=== PATIENT | female | born 1980 | race Caucasian/White ===

== ENCOUNTER → 2019-05-17 | Outpatient (CLI) | payer BC | LOC: SJCVCIMAG 13:36 | DX: I10 Essential (primary) hypertension (principal) ==

== ENCOUNTER → 2019-05-18 | Outpatient (CLI) | payer BC | LOC: SJCVCIMAG 09:28 | DX: I10 Essential (primary) hypertension (principal); E78.5 Hyperlipidemia, unspecified ==

== ENCOUNTER → 2019-11-09 | Outpatient (CLI) | payer OTHER | LOC: CAT 08:10 | PROVIDERS: ATTEND Internal Medicine Cardiovascular Disease | DX: Z13.6 Encounter for screening for cardiovascular disorders (principal); I25.10 Atherosclerotic heart disease of native coronary artery without angina pectoris; E78.00 Pure hypercholesterolemia, unspecified ==